=== PATIENT | female | born 1995 | race Caucasian/White ===

== ENCOUNTER 2019-09-12 01:55 | Outpatient (CLI) | payer MEDICAID, SELFPAY ==
--- NOTE | 2019-09-12 | US_ITS ---
WS: [id number] ULTRASOUND OB TWINS HISTORY: MULTIGRAVIDA IN THIRD TRIMESTER COMPARISON: 08/26/2019, 04/19/2019 FETUS A Presentation: Breech Placenta: Posterior, fundal and grade 2 HEART: FHR 145 beats per minute. measurements: BPD = 8.6 cm = 34 weeks 4 days HC = 31.5 cm = 35 weeks 2 days AC = 30.8 cm = 34 weeks 6 days FL = 6.6 cm = 34 weeks 0 day BOBBY: Decreased fluid surrounding baby A. EFW: 2469 g; 66 percentile AGA by ultrasound: 34 weeks 5 days NOLBERTO by ultrasound: 10/19/2019 FETUS B Presentation: Breech. Placenta: Posterior, fundal and grade 2 HEART: FHR 134 beats per minute. measurements: BPD = 8.6 cm = 34 weeks 4 days HC = 31.3 cm = 35 weeks 1 day AC = 31.2 cm = 35 weeks 1 day FL = 6.8 cm = 34 weeks 5 days BOBBY: Increasing fluid surrounding the fetus B. BOBBY calculated at 33 cm. EFW: 2557 g; 71st percentile AGA by ultrasound: 34 weeks 6 days NOLBERTO by ultrasound: 10/18/2019 US/US OB follow up twins [id number] IMPRESSION: 1. Twin gestation A. * Breech. * 34 weeks 5 days with an EDC of the 10/19/2019 * Decreased amniotic fluid around the fetus. * Estimated weight at the 66th percentile. 2. Twin gestation B. * Breech. * 34 weeks 6 days with an EDC of 10/18/2019. * Increased fluid surrounding the fetus. * Estimated weight at the 71st percentile. 3. Appropriate growth since the first trimester ultrasound. No growth asymmetry . There is asymmetry between the amniotic fluid volume surrounding each fetus. More fluid surrounding baby B.
== END 2019-09-12 01:56 | disposition home or self-care (01) ==
LOC: RADOUTREAD 16:11
PROVIDERS: PCP Pediatrics Adolescent Medicine; Visit Provider Family Medicine
DX: O30.003 Twin pregnancy, unspecified number of placenta and unspecified number of amniotic sacs, third trimester (principal); Z3A.34 34 weeks gestation of pregnancy; O32.1XX0 Maternal care for breech presentation, not applicable or unspecified

== ENCOUNTER 2019-09-13 12:25 | Outpatient (CLI) | payer MEDICAID, SELFPAY ==
[2019-09-13 13:25] VITALS: RESP 20; TEMP 37; BMI 45.3
[2019-09-13 14:25] VITALS: BP 156/78; PULSE 114
[2019-09-13 14:35] VITALS: RESP 20; TEMP 36.9
== END 2019-09-13 14:35 | disposition home or self-care (01) ==
PROVIDERS: PCP Pediatrics Adolescent Medicine; Visit Provider Family Medicine
DX: O30.009 Twin pregnancy, unspecified number of placenta and unspecified number of amniotic sacs, unspecified trimester (principal); Z3A.00 Weeks of gestation of pregnancy not specified
CPT/HCPCS: 59025; 99211

== ENCOUNTER 2019-09-20 12:44 | Outpatient (CLI) | payer MEDICAID, SELFPAY ==
[2019-09-20 12:55] VITALS: BMI 44.7
[2019-09-20 13:12] VITALS: BP 126/63; PULSE 107
[2019-09-20 13:13] VITALS: RESP 18; TEMP 37
[2019-09-20 13:14] VITALS: BP 126/63; PULSE 107
[2019-09-20 13:51] VITALS: PULSE 125; O2SAT 99
[2019-09-20 14:00] VITALS: BP 126/63; PULSE 107; RESP 18; TEMP 37
[2019-09-20 21:59] LABS: Basophils % 0.2 %; Eosinophils # 0.2 10^3/uL (0.0-0.8); Eosinophils % 1.2 %; Hematocrit 34.2 % (37.0-47.0); Hemoglobin 10.9 g/dL (11.5-15.3); Lymphocytes # 2.9 10^3/uL (0.8-4.8); Mean Corpuscular HGB Conc 31.9 g/dL (30.0-36.0); Mean Corpuscular Hemoglobin 27.3 pg (28.0-34.0); Mean Corpuscular Volume 85.5 fL (81-99); Mean Platelet Volume 12.8 fL (7.4-10.4); Monocytes # 1.3 10^3/uL (0.2-0.9); Monocytes % 9.4 %; Neutrophils # 9.2 10^3/uL (1.8-7.7); Nucleated Red Blood Cells % 0 %; Platelet Count 150 10^3/cmm (130-400); Red Cell Distribution Width 12.8 % (12.1-15.1); White Blood Count 13.8 10^3/uL (4.0-10.0)
== END 2019-09-20 14:00 | disposition home or self-care (01) ==
LOC: OPOB 12:52
PROVIDERS: PCP Pediatrics Adolescent Medicine; Visit Provider Family Medicine
DX: O30.009 Twin pregnancy, unspecified number of placenta and unspecified number of amniotic sacs, unspecified trimester (principal); Z3A.00 Weeks of gestation of pregnancy not specified
CPT/HCPCS: 59025; 85025; 99211

== ENCOUNTER 2019-09-20 21:37 | Inpatient (IN) | payer MEDICAID, SELFPAY ==
[2019-09-20] VITALS (29 sets, daily range): BP systolic 0–165; BP diastolic 0–91; PULSE 89–126; RESP 16–20; TEMP 36.7–36.8; O2SAT 97–99; BMI 44.6
[2019-09-20] MEDS: lactated ringers 1,000 ML 999 ML IV ×2 (18:30→19:37)
--- NOTE | 2019-09-20 21:24 | PM.OBGYHP ---
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 The patient began care at around 6 weeks gestation and was found to have a twin at that time after an ultrasound was done secondary to spotting of blood. That did resolve. She has had no significant problems through her course. Options were discussed with her regarding possible vaginal delivery versus section. The infant's have grown proportionately and well through the . Her blood type is B+ with antibody screen negative. Hepatitis B, hepatitis C, RPR and HIV were negative. Rubella is immune and group B strep has been negative. Glucose screen was 103. More recently, the patient has been having intermittent contractions which have become uncomfortable. She was seen in the office earlier today as well as at the OB department for nonstress testing which was reactive. She states that sometime after she left the OB department she began having stronger contractions and harder contractions. As they continued she was brought to the obstetrics department at [facility]. She was niharika every 2 to 4 minutes on arrival and was 1-1/2 cm dilated but still pretty thick and high. She was given 2 L of lactated Ringer's intravenously for hydration and she is continued to contract although pretty regularly. heart tones have been difficult to keep on the monitor. 1 of the 's has a pretty flat heart rate with very few D cells or accelerations. The other is very reactive. Her cervix has not changed however indicating she is not in active labor. However, as her contractions continue and her discomfort grows along with 1 of her infant's not being very reactive I have discussed this case with the patient and her spouse and we feel that she probably should proceed with section tonight. I have discussed this case with Dr. Pires who is coming in to help perform that. The infant's are both in breech position at this time. Review of Systems General: Reports: 10 or more systems reviewed and unremarkable except in HPI and below Const: Reports: fatigue; Denies: fever or chills Card: Reports: swelling of feet/ankles (Mild); Denies: chest pain, palpitations, irregular heart rhythm or edema Resp: Denies: shortness of breath, productive cough or chest congestion GI: Reports: abdominal pain (Contractions and overall significant pain.); Denies: difficulty swallowing : Reports: absence of menstruation (35 weeks and 2 days gestation .) and pelvic pain; Denies: flank pain or difficulty urinating Musc: Reports: back pain; Denies: neck pain or extremity pain Neuro: Denies: headache, numbness in extremities, weakness in extremities or frequent falls Psych: Reports: anxiety; Denies: depression or mood swings Medications/Allergies Allergies Allergy/AdvReac Type Severity Reaction Status Date / Time No Known Allergies Allergy Verified 09/20/19 14:51 [facility] COLLAR CUTTER History Other History: 2 para 1. Presently with twins. Vitals/I&O/Wt Last Vital Signs Temp 98.3 F 09/20/19 18:04 Pulse 126 H 09/20/19 21:13 Resp 18 09/20/19 18:09 BP 129/76 09/20/19 21:13 Weight last 48 hrs Weight 117.934 kg Physical Exam Const: COMMON NORMALS: no apparent distress and alert GENERAL APPEARANCE: cooperative; not comfortable (Patient obviously uncomfortable.) NUTRITIONAL APPEARANCE: overweight ORIENTATION/CONSCIOUSNESS: Yes awake, Yes oriented to person, Yes oriented to place and Yes oriented to time HENMT: COMMON NORMALS: head/scalp atraumatic HEAD & SCALP: normal to inspection and atraumatic Neck/C-Spine: COMMON NORMALS: full ROM, supple and no JVD Chest: COMMONS NORMALS: inspection of chest normal CHEST: Yes symmetrical chest wall rise Resp: COMMON NORMALS: normal respiratory effort, no retractions, no use of accessory muscles and clear to auscultation bilaterally AUSCULTATION: clear to auscultation bilaterally Cardio: COMMON NORMALS: no JVD, regular rate, regular rhythm and no murmurs RATE: regular rate RHYTHM: regular rhythm GI: COMMON NORMALS: non-tender; negative for normal to inspection, nondistended, normoactive bowel sounds (Obvious gravid abdomen and firm.) : COMMON NORMALS: Yes no CVA tenderness BLADDER/KIDNEY EXAM: Yes no CVA tenderness MANUAL OB EXAM: dilated 1 cm (1.5 cm), effaced 50% and station high UTERUS PALPATION: No uterus tender AMNIOTIC FLUID: no fluid Back/Pelvis: COMMON NORMALS: no CVA tenderness Extremity: GENERAL: Yes edema (Trace edema) Neuro: SENSORIUM/ORIENTATION: Yes alert, Yes oriented to person, Yes oriented to place and Yes oriented to time Psych: COMMON NORMALS: mental status grossly normal, thought process normal, cooperative, affect normal, speech normal and activity/motor behavior normal SPEECH: Yes normal speech THOUGHT PROCESS: normal thought process A&P Assessment and plan (1) Twin in third trimester: Patient is 35 weeks and 2 days gestation with contractions and nonreassuring heart strip. A decision has been made to proceed with primary section. Dr. Pires has been consulted and anesthesia is coming. Plan spinal anesthesia for delivery of twin . We will adjust orders as necessary. Status: Acute Code(s): O30.003 - Twin , unspecified number of placenta and unspecified number of amniotic sacs, third trimester (2) Breech presentation with problem: Patient requires delivery secondary to breech presentation with twin . Status: Acute Code(s): O32.1XX0 - Maternal care for breech presentation, not applicable or unspecified Attestations Medical Necessity Statement*: This patient is with twin and presently is preparing to undergo section secondary to labor and breech presentation of both twins. She requires inpatient hospitalization I expect this hospital stay to be greater than 2 midnights. Coding Level of Care Code Acute Program Paraprofessional for Chg Fwd Exam Problem Focused Diagnoses Twin in third trimester O30.003 Breech presentation with problem O32.1XX0
--- NOTE | 2019-09-20 21:48 | ANES.PREANES ---
Pre-Anesthetic Assessment Pre-Anesthetic Assessment: Height/Weight: Height 1.63 m Weight 117.934 kg Temp Pulse Resp BP 98.3 F 101 H 18 165/83 09/20/19 18:04 09/20/19 21:42 09/20/19 18:09 09/20/19 21:42 Preop Diagnosis: labor twins Proposed Procedure: c section Last Intake: 15:00 Exam: Pre-Anes Outpt Exam: alert, oriented x 3, clear to auscultation bilaterally and regular rate & rhythm Airway: Submandibular: WNL Cervical ROM: WNL MP: 2 Pulmonary: Pulmonary: None reported CV/HEM: CV/HEM: None reported : : None reported Hepatic: Hepatic: None reported GI: GI: None reported Metabolic: Metabolic: Morbid obesity Musc/skel: Musc/skel: None reported Neuropsych: Neuropsych: None reported Anesthetic Plan: ASA status: II Anesthesia: Anesthesia Evaluation and Eval. for regional block Other: SAB Data Anesthesia Cardiac Studies: No Data to Display
[2019-09-20] MEDS: metoclopramide 5 mg/mL SDV 2 mL 10 MG IVP (22:04)
[2019-09-20] MEDS: famotidine 20 mg/2 mL INJ IVP (22:04)
[2019-09-20] MEDS: citric acid-sodium citrate 30 mL UDC PO (22:04)
[2019-09-21] VITALS (23 sets, daily range): BP systolic 92–141; BP diastolic 60–81; PULSE 76–130; RESP 16–18; TEMP 36.4–37; O2SAT 96–98
--- NOTE | 2019-09-21 00:01 | PM.OP ---
Operative Report Date of procedure: 09/21/19 Pre-op Diagnosis: labor twins Pre-op Diagnosis: 24-year-old female at 35 weeks and 2 days with twin gestation. Consistent contractions with nonreassuring heart tones Breech presentation of both infants Post-op diagnosis: same Procedure Done: Lower transverse section Specimens removed/disposition: 1. Twin A was a female with a weight of 5 pounds 9 ounces and Apgars of 8 and 9 2. Twin B who was actually delivered first with his weight was 5 pounds 1 ounces with Apgars of 3 5 and 7 3. An intact placenta with both umbilical cords demonstrating 3 vessels Pathology: Placenta with both umbilical cords. The male or twin B had curved hemostats placed on his umbilicus and the female or twin A had a straight hemostat placed on her umbilicus Surgeon: Olaf Pires Anesthesia: Other (Spinal) Estimated blood loss (mL): 1,000 Complications: None Condition: stable Disposition: floor (OB) Procedure: The patient was brought back to the operating room where she was prepped and draped in usual sterile fashion. Anesthesia was found to be adequate. Due to the habitus of the patient, I elected to make the incision above the pannus approximately 5 cm below the umbilicus. I made the incision with a #10 blade. I then dissected down to the underlying subcutaneous tissue until arriving at the prerectal fascia. The fascia was then nicked with the scalpel bilaterally. The fascial incisions were then carried laterally with Agudelo scissors. Attention was then turned to the superior aspect of the incision which was grasped with kochers and tented up away from the underlying rectus abdominis muscles., There was almost no rectus abdominis muscle tissue. Regardless the muscles were then dissected away from the fascia manually, Attention was then turned to the inferior aspect of the incision, and the fascia was dissected away from the underlying muscle in similar fashion. The peritoneum was entered manually. Excellent visualization of the uterus was noted. A lower transverse uterine incision was then made with a #10 blade. Upon arriving at the intrauterine cavity, the uterine incision was then extended manually. The membranes to both babies were then ruptured with an Allis. The first baby encountered was baby B who was easily delivered from a beckie breech position. His car was then cut and clamped and he was handed to the waiting nurses and Dr. Segundo. I then attempted to deliver the female from her breech position. Her butt was far locked down into the canal that I elected to deliver her head first after making several attempts to maneuver her body to the uterine incision for a breech delivery. Baby's head was easily delivered. I then completely delivered the baby once again, and clamped and cut her umbilical cord and handed her to Dr. Segundo and his nurses. The uterus was externalized. The intrauterine cavity was cleansed of any remaining debris. The uterine incision was reapproximated in 2 layers. The first layer was performed with 0 Vicryl in a running locked stitch. The second layer was an imbricating stitch also using 0 Vicryl. The uterus was replaced into the abdomen. The peritoneum was then irrigated with warm saline. I reexamined the uterine incision and found it to be hemostatic. The fascia was then reapproximated using 0 Vicryl in running stitch. The subcutaneous tissue was then reapproximated using 0 Vicryl in a running stitch. The skin was then reapproximated using 4-0 Vicryl in a subcuticular running stitch. Steri-Strips were placed. A sterile dressing was placed. All counts were correct x2. Both the mother and baby were in stable condition.
[2019-09-21 07:45] LABS: Hematocrit 33.8 % (37.0-47.0); Hemoglobin 10.8 g/dL (11.5-15.3); Mean Corpuscular Hemoglobin 27.4 pg (28.0-34.0); Mean Corpuscular Volume 85.8 fL (81-99); Mean Platelet Volume 13.9 fL (7.4-10.4); Platelet Count 125 10^3/cmm (130-400); Red Blood Count 3.94 10^6/uL (4.1-5.3); Red Cell Distribution Width 12.8 % (12.1-15.1); White Blood Count 15.6 10^3/uL (4.0-10.0)
--- NOTE | 2019-09-21 09:14 | PM.OBGYPN ---
MOBILE PET GROOMER Subjective Subjective: Interval history: The patient is doing very well. She has no complaints. Her bleeding has been reasonable. She has no pain. Labor: Station: -3 Amniotic Membrane Status: Intact Monitor Mode: External Contraction Pattern: Regular Vitals/I&O/Wt Last Vital Signs Temp 97.5 F L 09/21/19 06:26 Pulse 87 09/21/19 06:26 Resp 16 09/21/19 06:26 BP 106/64 09/21/19 06:26 Pulse Ox 97 09/21/19 01:42 09/20/19 09/21/19 09/21/19 22:59 06:59 14:59 Output Total 920 / 920 Balance -920 / -920 Weight last 48 hrs Weight 260 lb Physical Exam Narrative: EXAM NARRATIVE: She is in no acute distress Lungs are clear auscultation bilaterally Her heart has a regular rate and rhythm Her fundus is below the umbilicus and firm Her dressing is clean, dry and intact Her extremities have trace edema Data : 09/21/19 06:50 A&P Assessment and plan (1) Status post : The patient appears to be recovering appropriately. I anticipate she will have a routine post hospital course. Status: Acute Code(s): Z98.891 - History of uterine scar from previous surgery Attestations Medical Necessity Statement*: Routine post care Coding Level of Care Code Acute Engineering Technician for Chg Fwd Diagnoses Status post Z98.891
[2019-09-21] MEDS: prenatal vitamin Capsule 1 CAP PO (10:08)
[2019-09-21] MEDS: docusate sodium 100 mg Capsule PO ×2 (10:09→20:30)
[2019-09-21] MEDS: HYDROcodone-acetaminophen 5-325 mg Tablet PO ×2 (17:01→20:30)
[2019-09-22 04:00] VITALS: BP 109/69; PULSE 86; RESP 18; TEMP 36.5; O2SAT 97
[2019-09-22] MEDS: HYDROcodone-acetaminophen 5-325 mg Tablet PO ×2 (04:27→08:33)
[2019-09-22] MEDS: acetaminophen 325 mg Tablet 650 MG PO (06:05)
[2019-09-22] MEDS: prenatal vitamin Capsule 1 CAP PO (08:32)
[2019-09-22] MEDS: ferrous sulfate EC 325 mg Tablet PO (08:33)
[2019-09-22] MEDS: docusate sodium 100 mg Capsule PO (08:33)
[2019-09-22 08:40] VITALS: BP 123/75; PULSE 92; RESP 16; TEMP 36.6
[2019-09-22 10:55] VITALS: BP 113/75; PULSE 86; RESP 16; TEMP 36.6
--- NOTE | 2019-11-12 07:04 | PM.OBGYDC ---
Discharge Providers PERSONAL CARE SERVICE PROVIDER Date of Admission: 09/20/19 21:37 Date of Discharge: 11/12/19 Attending Provider at Admission: Yuri Segundo MD Attending Provider at Discharge: Olaf Pires Primary Care Provider: Yuri Segundo MD Diagnoses at Discharge Discharge Diagnosis (1) Status post : Status: Resolved Reason for Visit Reason for Visit: Reason For Visit: Contractions Hospital Course Hospital Course: The patient is a 35-week gestational age female with twin who presented to the hospital in active labor. The infants were both in breech position. 1 of the 's had a nonreassuring heart tone. Dr. Segundo assessed the situation and determined that the benefits of proceeding with a outweigh the risks of trying conservative care. I was contacted and we proceeded to a . The was unremarkable. The patient's post operative course was also unremarkable. Her bleeding was well controlled. Her pain was adequately controlled. She passed gas. Her diet was advanced and tolerated well. She was able to ambulate without difficulty. Physical Exam Narrative: EXAM NARRATIVE: She is in no acute distress Lungs are clear auscultation bilaterally Her heart has a regular rate and rhythm Her fundus is below the umbilicus and firm Her incision is clean, dry and intact Her extremities have trace edema Discharge Data Data Completed and Pending: Completed Studies During Hospitalization Category Date Time Status Pathology: Surgic al [PTH] Routine Pth 09/23/19 09:36 Completed Vitals: Last Vital Signs Temp 97.8 F 09/22/19 10:55 Pulse 86 09/22/19 10:55 Resp 16 09/22/19 10:55 BP 113/75 09/22/19 10:55 Pulse Ox 97 09/22/19 04:00 Discharge Plan Discharge Patient Disposition: Home, Self-Care Condition: Stable Prescriptions: New hydrocodone-acetaminophen 5-325 mg Tablet 1 - 2 tab PO Q4H PRN (Reason: Moderate To Severe Pain) Qty: 30 RF: 0 ibuprofen 800 mg Tablet 800 mg PO TID Qty: 45 RF: 0 Continued Vitamin 27 mg iron- 0.8 mg Tablet 1 tab PO DAILY RF: 0 Discharge Orders: Discharge Order (Routine); Ordered 09/22/19 Ordered By: Olaf Pires Referrals: Yuri Segundo MD [Physician] - 6 Weeks (Call Dr. Segundo's office Monday to make a 6 week follow up appointment. ) Olaf Pires MD [Physician] - 4-7 days (Call [facility] and make an appointment for or Monday for an incision check with Dr. Pires.) Discharge Diet: Regular Discharge Activity: Limit activity as instructed Patient Instructions: OB - Lexis/Henok, OB Discharge Report, OB Food/Drug Interaction Guide, OB Home Care, OB Proud Parent Packet Discharge Date/Time: 09/22/19 12:10 Discharge Attestations PERSONAL CARE SERVICE PROVIDER Time Spent in Discharge Care*: less than 30 min Coding Level of Care Code Acute Fruit Coordinator for Chg Fwd Diagnoses Status post Z98.891
== END 2019-09-22 12:10 | disposition home or self-care (01) | DRG 788 ==
LOC: OBGYN 21:46 → OPOB 21:46
PROVIDERS: Family Medicine; Admitting Provider Family Medicine; PCP Pediatrics Adolescent Medicine; Visit Provider Family Medicine
PROC: (CPT 59514; principal; 2019-09-20 22:00)
DX: O32.1XX0 Maternal care for breech presentation, not applicable or unspecified (principal); O30.003 Twin pregnancy, unspecified number of placenta and unspecified number of amniotic sacs, third trimester; Z3A.35 35 weeks gestation of pregnancy; Z37.2 Twins, both liveborn; O34.211 Maternal care for low transverse scar from previous cesarean delivery; O99.214 Obesity complicating childbirth; E66.01 Morbid (severe) obesity due to excess calories
CPT/HCPCS: 12345; 36415; 59409; 85027; 88307; 96375; 99211; J0690; J2274; J2405; J2590; J2765; J3490

== ENCOUNTER → 2020-04-22 11:40 | Outpatient (BNVA) | payer MEDICAID, SELFPAY | PROVIDERS: PCP Pediatrics Adolescent Medicine; Referring Provider Nurse Practitioner Family; Visit Provider Specialist | DX: R20.0 Anesthesia of skin (principal); R20.2 Paresthesia of skin; M79.641 Pain in right hand; M79.642 Pain in left hand | CPT/HCPCS: 95910 ==

== ENCOUNTER → 2020-07-22 14:11 | Outpatient (BNVA) | payer MEDICAID, SELFPAY | PROVIDERS: PCP Nurse Practitioner Family; Visit Provider Internal Medicine | DX: R76.8 Other specified abnormal immunological findings in serum (principal); R20.0 Anesthesia of skin; R20.2 Paresthesia of skin; Z11.59 Encounter for screening for other viral diseases; Z79.899 Other long term (current) drug therapy | CPT/HCPCS: 36415; 99204 ==

== ENCOUNTER 2020-07-22 15:43 | Outpatient (CLI) | payer MEDICAID, SELFPAY ==
--- NOTE | 2020-07-22 15:50 | XR_ITS ---
WS: [id number] TECHNIQUE: 2 views of the right hand CLINICAL INFORMATION: R76.8 - Other specified abnormal immunological findings in serum COMPARISON: None. FINDINGS: Normal metacarpals. Normal MCP joint. Metacarpal heads are normal in appearance. Normal PIP and DIP j oints. No evidence of acute fracture or dislocation. Radiocarpal joint: Mild narrowing Carpal bones: Normal. XR/XR hand RT 2V [id number] IMPRESSION: No significant erosive changes.
--- NOTE | 2020-07-22 15:50 | XR_ITS ---
WS: [id number] TECHNIQUE: 2 views of the left hand CLINICAL INFORMATION: R76.8 - Other specified abnormal immunological findings in serum COMPARISON: None. FINDINGS: Normal metacarpals. Normal MCP joint. Metacarpal heads are normal in appearance. Normal PIP and DIP j oints. No evidence of acute fracture or dislocation. Radiocarpal joint: Mild degenerative narrowing. Carpal bones: Normal. XR/XR hand LT 2V [id number] IMPRESSION: No significant erosive changes.
== END 2020-07-22 15:44 | disposition home or self-care (01) ==
LOC: RADWPI 15:49
PROVIDERS: PCP Nurse Practitioner Family; Visit Provider Internal Medicine
DX: R76.8 Other specified abnormal immunological findings in serum (principal)
CPT/HCPCS: 73120; 80053; 81003; 82607; 82728; 83540; 85025; 85651; 86140; 86431; 86704; 86803; 87340

== ENCOUNTER → 2020-10-27 13:42 | Outpatient (BNVA) | payer BC, SELFPAY | PROVIDERS: PCP Nurse Practitioner Family; Visit Provider Internal Medicine | DX: R76.8 Other specified abnormal immunological findings in serum (principal); R79.82 Elevated C-reactive protein (CRP); Z79.899 Other long term (current) drug therapy; M79.643 Pain in unspecified hand | CPT/HCPCS: 86160; 99214 ==

== ENCOUNTER → 2021-01-21 11:32 | Outpatient (BNVA) | payer BC, SELFPAY | PROVIDERS: PCP Nurse Practitioner Family; Visit Provider Internal Medicine | DX: R76.8 Other specified abnormal immunological findings in serum (principal); R79.82 Elevated C-reactive protein (CRP); M79.643 Pain in unspecified hand | CPT/HCPCS: 99213 ==

== ENCOUNTER 2021-02-09 10:17 | Outpatient (CLI) | payer BC, SELFPAY | END 2021-02-09 10:18 | disposition home or self-care (01) | PROVIDERS: PCP Nurse Practitioner Family; Visit Provider Internal Medicine | DX: R76.8 Other specified abnormal immunological findings in serum (principal) | CPT/HCPCS: 36415; 80053; 85025; 85651; 86140 ==

== ENCOUNTER → 2021-02-23 10:04 | Outpatient (BNVA) | payer BC, SELFPAY | PROVIDERS: PCP Nurse Practitioner Family; Visit Provider Internal Medicine | DX: R76.8 Other specified abnormal immunological findings in serum (principal); R79.82 Elevated C-reactive protein (CRP); M79.643 Pain in unspecified hand; R53.83 Other fatigue | CPT/HCPCS: 99213 ==

== ENCOUNTER → 2021-07-27 13:17 | Outpatient (BNVA) | payer BC, SELFPAY | PROVIDERS: PCP Nurse Practitioner Family; Visit Provider Internal Medicine Rheumatology | DX: R76.8 Other specified abnormal immunological findings in serum (principal); Z79.899 Other long term (current) drug therapy | CPT/HCPCS: 36415 ==

== ENCOUNTER 2021-07-27 14:30 | Outpatient (CLI) | payer MEDICAID, SELFPAY ==
[2021-07-27 15:05] LABS: Basophils # 0.1 10^3/uL (0.0-0.1); Basophils % 0.6 %; Eosinophils # 0.3 10^3/uL (0.0-0.8); Hematocrit 41.5 % (37.0-47.0); Hemoglobin 14.1 g/dL (11.5-15.3); Lymphocytes # 3.3 10^3/uL (0.8-4.8); Lymphocytes % 34.3 %; Mean Corpuscular Hemoglobin 29.4 pg (28.0-34.0); Mean Corpuscular Volume 86.6 fl (81-99); Mean Platelet Volume 12.1 fL (7.4-10.4); Monocytes # 0.8 10^3/uL (0.2-0.9); Monocytes % 8.7 %; Neutrophils # 5.03 10^3/uL (1.8-7.7); Neutrophils % 53.1 %; Nucleated Red Blood Cells % 0 %; Platelet Count 229 10^3/cmm (130-400); Red Blood Count 4.79 10^6/uL (4.1-5.3); Red Cell Distribution Width 12.1 % (12.1-15.1); White Blood Count 9.5 10^3/uL (4.0-10.0)
[2021-07-27 15:14] LABS: Add Urine Microscopic? NO; Charge for UA Resulting for Rev
[2021-07-27 15:20] LABS: Bilirubin Urine Neg (Negative); Blood Urine Neg (Negative); Glucose Urine UA Norm (Normal); Ketones Urine Negative (Negative); Leukocyte Esterase Urine Negative (Negative); Nitrate Urine Negative (Negative); Protein Urine Neg (Negative); Urine Appearance Clear (CLEAR); Urine Color Yellow (Yellow); Urobilinogen Urine Norm (Negative); pH Urine 5 (5-7)
[2021-07-27 15:28] LABS: Alanine Aminotransferase 19 U/L (0-33); Albumin Level 4.2 g/dL (3.5-5.2); Alkaline Phosphatase 93 IU/L (35-105); Anion Gap 16.6 (5-19); Aspartate Amino Transferase 18 U/L (0-32); Blood Urea Nitrogen 8 mg/dL (6-20); C Reactive Protein 2.8 mg/L (0.0-4.9); Calcium 8.7 mg/dL (8.5-10.5); Carbon Dioxide 21 mmol/L (22-29); Chloride 101 mmol/L (98-107); Globulin 3.1 g/dL (1.3-4.6); Glomerular Filtration Rate 100.4 mL/min (90-130); Glucose 78 mg/dL (65-115); Osmolality Calculated 277 mOsm/kg (285-295); Potassium 3.6 mmol/L (3.5-5.1); Sodium 135 mmol/L (136-145); Total Bilirubin 0.2 mg/dL (0.15-1.2); Total Protein 7.3 g/dL (6.6-8.7)
[2021-08-02 12:17] LABS: Erythrocyte Sedimentation Rate 6 mm/hr (0-15)
== END 2021-07-27 14:31 | disposition home or self-care (01) ==
PROVIDERS: PCP Nurse Practitioner Family; Visit Provider Internal Medicine
DX: R76.8 Other specified abnormal immunological findings in serum (principal); Z79.899 Other long term (current) drug therapy
CPT/HCPCS: 80053; 81003; 85025; 85651; 86140

== ENCOUNTER → 2021-08-10 13:23 | Outpatient (BNVA) | payer MEDICAID, SELFPAY | PROVIDERS: PCP Nurse Practitioner Family; Visit Provider Internal Medicine | DX: R76.8 Other specified abnormal immunological findings in serum (principal); R20.0 Anesthesia of skin; R20.2 Paresthesia of skin | CPT/HCPCS: 99213; 99214 ==

== ENCOUNTER → 2021-09-21 12:28 | Outpatient (BNVA) | payer MEDICAID, SELFPAY | PROVIDERS: PCP Nurse Practitioner Family; Visit Provider Nurse Practitioner Family | DX: Z20.822 Contact with and (suspected) exposure to COVID-19 (principal) | CPT/HCPCS: 87635 ==

== ENCOUNTER → 2022-01-04 14:37 | Outpatient (BNVA) | payer MEDICAID, SELFPAY | PROVIDERS: PCP Nurse Practitioner Family; Visit Provider Internal Medicine | DX: R76.8 Other specified abnormal immunological findings in serum (principal); R20.0 Anesthesia of skin; R20.2 Paresthesia of skin | CPT/HCPCS: 80053; 81001; 85025; 85651; 99213; 99214 ==

== ENCOUNTER → 2022-10-11 14:35 | Outpatient (BNVA) | payer MEDICAID, SELFPAY | PROVIDERS: PCP Nurse Practitioner Family; Visit Provider Internal Medicine | DX: R76.8 Other specified abnormal immunological findings in serum (principal); R20.0 Anesthesia of skin; R20.2 Paresthesia of skin; R21 Rash and other nonspecific skin eruption | CPT/HCPCS: 36415; 80053; 81001; 85025; 85651; 86036; 86140 ==

== ENCOUNTER → 2022-10-24 12:15 | Outpatient (BNVA) | payer MEDICAID, SELFPAY | PROVIDERS: PCP Nurse Practitioner Family; Visit Provider Dermatology | DX: I77.6 Arteritis, unspecified (principal); R76.8 Other specified abnormal immunological findings in serum; R21 Rash and other nonspecific skin eruption; R20.0 Anesthesia of skin; R20.2 Paresthesia of skin | CPT/HCPCS: 36415; 82595; 86160; 86162; 86235; 86255; 86376; 86705; 86706; 86709; 86803; 87340; 87806 ==

== ENCOUNTER → 2022-11-17 09:32 | Outpatient (BNVA) | payer MEDICAID, SELFPAY | PROVIDERS: PCP Nurse Practitioner Family; Visit Provider Dermatology | DX: I77.6 Arteritis, unspecified (principal); Z79.899 Other long term (current) drug therapy | CPT/HCPCS: 81001 ==

== ENCOUNTER 2022-12-13 08:24 | Outpatient (CLI) | payer MEDICAID, SELFPAY ==
[2022-12-13 09:19] LABS: Basophils % 0.4 %; Eosinophils # 0.2 10^3/uL (0.0-0.8); Eosinophils % 2.1 %; Hematocrit 40.9 % (37.0-47.0); Hemoglobin 13.2 g/dL (11.5-15.3); Lymphocytes % 18.7 %; Mean Corpuscular HGB Conc 32.3 g/dL (30.0-36.0); Mean Corpuscular Hemoglobin 29.1 pg (28.0-34.0); Mean Corpuscular Volume 90.1 fl (81-99); Mean Platelet Volume 11.7 fL (7.4-10.4); Monocytes # 0.9 10^3/uL (0.2-0.9); Monocytes % 8.2 %; Neutrophils # 7.68 10^3/uL (1.8-7.7); Neutrophils % 70.2 %; Nucleated Red Blood Cells % 0 %; Platelet Count 229 10^3/cmm (130-400); Red Blood Count 4.54 10^6/uL (4.1-5.3); Red Cell Distribution Width 12.4 % (12.1-15.1); White Blood Count 10.9 10^3/uL (4.0-10.0)
[2022-12-13 09:42] LABS: Add Urine Microscopic? YES; Bilirubin Urine Neg (Negative); Blood Urine Neg (Negative); Glucose Urine UA Norm (Normal); Ketones Urine Negative (Negative); Leukocyte Esterase Urine Negative (Negative); Nitrate Urine Negative (Negative); Protein Urine Neg (Negative); Specific Gravity, Urine 1.005 (1.005-1.030); Sulfosalicylic Acid Urine Negative (Negative); Urine Appearance Cloudy (CLEAR); Urine Color Yellow (Yellow); Urobilinogen Urine Norm (Negative); pH Urine 8 (5-7)
[2022-12-13 09:44] LABS: Amorphous Sediment Urine 2+ /hpf; Bacteria Urine 1+ /hpf; RBC Urine 0-4 /hpf (0-2); WBC Urine 0-4 /hpf (0-5)
[2022-12-13 09:52] LABS: Alanine Aminotransferase 33 U/L (0-33); Albumin Level 4.4 g/dL (3.5-5.2); Alkaline Phosphatase 85 U/L (35-105); Anion Gap 13.8 (5-19); Aspartate Amino Transferase 24 U/L (0-32); Blood Urea Nitrogen 7 mg/dL (6-20); C Reactive Protein 14.8 mg/L (0.0-4.9); Calcium 9.1 mg/dL (8.5-10.5); Carbon Dioxide 24 mmol/L (22-29); Chloride 108 mmol/L (98-107); Globulin 2.9 g/dL (1.3-4.6); Glucose 92 mg/dL (65-115); Osmolality Calculated 292 mOsm/kg (285-295); Potassium 3.8 mmol/L (3.5-5.1); Sodium 142 mmol/L (136-145); Total Bilirubin 0.3 mg/dL (0.15-1.2); Total Protein 7.3 g/dL (6.6-8.7)
[2022-12-13 14:23] LABS: Erythrocyte Sedimentation Rate 15 mm/hr (0-15)
[2022-12-15 13:24] LABS: Quantiferon Mitogen >10.00 IU/mL; Quantiferon Nil 0.03 IU/mL; Quantiferon TB Gold NEGATIVE (NEGATIVE)
[2022-12-16 00:59] LABS: Glucose-6-Phosphate Dehydrogen 16.3 U/g Hgb (7.0-20.5)
[2022-12-16 03:25] LABS: ANCA Screen NEGATIVE (NEGATIVE)
== END 2022-12-13 08:25 | disposition home or self-care (01) ==
LOC: LAB 08:28
PROVIDERS: PCP Nurse Practitioner Family; Visit Provider Internal Medicine
DX: R76.8 Other specified abnormal immunological findings in serum (principal)
CPT/HCPCS: 36415; 80053; 81001; 82955; 85025; 85651; 86036; 86140; 86480

== ENCOUNTER 2023-05-03 13:39 | Emergency (ER) | payer MEDICAID, SELFPAY ==
[2023-05-03 13:59] VITALS: BP 124/77; PULSE 99; RESP 18; TEMP 36.7; O2SAT 94; BMI 39.9
--- NOTE | 2023-05-03 16:12 | W.ED.WOUNDLC ---
HPI - Wound/Laceration General: Chief Complaint: Wound/Laceration Stated Complaint: right hand lack Time Seen by Provider: 05/03/23 16:11 Source: patient Mode of arrival: ambulatory Limitations: no limitations History of Present Illness: Patient is a 28-year-old female who presents to ED today for evaluation and treatment of a laceration to her right hand that she sustained just prior to arrival after cutting it on the lid of a green myers can. Last tetanus is unknown. Onset (ago): hour(s) Extremity Location: Right: hand Place: home Patient tetanus UTD: No Context: accidental Associated symptoms: Reports no associated symptoms Review of Systems Musc: Reports: extremity pain; Denies: extremity swelling, joint pain or joint swelling Skin/Breast: Reports: other (laceration right hand) Neuro: Denies: numbness in extremities, weakness in extremities or sensory changes PFSH ED PFSH: Surgical History Hx of appendectomy Hx of section Family History Mother No problems noted. Family/Other Cancer Grandmother Cancer Grandfather Heart attack Denies family history of Rheumatoid arthritis Diabetes Lupus Hyperlipidemia Hypertension Stroke Social History Smoking and tobacco status: never smoked Alcohol intake: former Substance/Drug Use: never Physical Exam Const: COMMON NORMALS: no acute distress, no limitations and alert Extremity: COMMON NORMALS: full ROM, capillary refill normal, no joint enlargement, no clubbing, cyanosis or edema, no calf tenderness and no pedal edema GENERAL: Yes normal exam except as noted RIGHT UPPER EXTREMITY: Yes hand & digits OTHER: Patient has approximately 2.5 cm laceration to the ulnar aspect of the right hand; no bleeding; full range of motion of digits in all planes against resistance Neuro: COMMON NORMALS: moves all extremities, no focal motor deficits and no sensory deficits noted SENSORIUM/ORIENTATION: Yes alert Procedures Laceration Laceration 1: Site: hand Side (If applicable): right Size (cm): 2.5 Description: linear Depth: simple, single layer Local Anesthetic: lidocaine 1% Amount of anesthesia used (mL): 2.5 Pre-repair: wound explored and irrigated extensively Skin layer closed with: nylon Size (cm): 4-0 Number of sutures: 5 Technique: simple, interrupted Course Vital Signs: Vital signs: Vital Signs Temperature 98.1 F 05/03/23 13:59 Pulse Rate 99 05/03/23 13:59 Respiratory Rate 18 05/03/23 13:59 Blood Pressure 124/77 05/03/23 13:59 Pulse Oximetry 94 05/03/23 13:59 Oxygen Delivery Me thod Room Air 05/03/23 13:59 MDM - Wound/Laceration Medical Decision Making Wound was copiously irrigated and repaired as documented. No tendon involvement. Wound care/infection precautions discussed. Return to ED precautions given. Tetanus updated. Discharge Plan Discharge Patient Disposition: Home Clinical Impression: Laceration of hand, right Qualifiers: Encounter type: initial encounter Foreign body presence: without foreign body Qualified Code(s): S61.411A - Laceration without foreign body of right hand, initial encounter Condition: Stable Prescriptions: No Action loratadine [Claritin] 10 mg tablet 10 mg PO DAILY venlafaxine 25 mg tablet 25 mg PO DAILY fluticasone propionate [Flonase Allergy Relief] 50 mcg/actuation spray,suspension 2 spray intranasal DAILY Qty: 16 0RF Rx Instructions: administer into each nostril colchicine 0.6 mg tablet 0.6 mg PO BID Qty: 60 3RF cephalexin 500 mg tablet 500 mg PO QID 7 Days Qty: 28 0RF Discharge Orders: Discharge ED (Routine); Ordered 05/03/23 Ordered By: Kelsey Giles Referrals: Yuri Hilliard MD [Primary Care Provider] - Patient Instructions: Care For Your Stitches (DC), Laceration (DC) Activity Restrictions/Additional Instructions: Keep wound/laceration clean with warm soap and water twice daily. Monitor for signs of infection such as redness, swelling, increased pain, or drainage. Please seek medical re-evaluation if these occur. If you received sutures today these will need to be removed (unless you were told by the provider that they are absorbable). The provider should have discussed with you the length of time until removal-7 DAYS. You may return to the emergency department for this service. Coding Level of Care Code ED Water Well Driller for Thania Martinez
[2023-05-03] MEDS: tetanus-dipt-pertussis 0.5 mL SDV IM (16:38)
== END 2023-05-03 16:44 | disposition home or self-care (01) ==
PROVIDERS: Emergency Provider Physician Assistant; PCP Family Medicine
DX: S61.411A Laceration without foreign body of right hand, initial encounter (principal); W26.8XXA Contact with other sharp object(s), not elsewhere classified, initial encounter; Z23 Encounter for immunization
CPT/HCPCS: 12001; 90471; 90715; 99283

== ENCOUNTER 2023-05-17 08:25 | Outpatient (CLI) | payer MEDICAID, SELFPAY ==
[2023-05-17 08:46] LABS: Add Urine Microscopic? NO; Charge for UA Resulting for Rev
[2023-05-17 08:47] LABS: Basophils # 0.1 10^3/uL (0.0-0.1); Basophils % 0.6 %; Eosinophils # 0.3 10^3/uL (0.0-0.8); Eosinophils % 2.9 %; Hematocrit 41.9 % (36-47); Lymphocytes # 2.7 10^3/uL (0.8-4.8); Lymphocytes % 31.4 %; Mean Corpuscular HGB Conc 33.2 g/dL (30-55); Mean Corpuscular Hemoglobin 28.5 pg (27-33); Mean Corpuscular Volume 85.9 fl (85-98); Mean Platelet Volume 11.1 fL (7.4-10.4); Monocytes # 0.7 10^3/uL (0.2-0.9); Monocytes % 7.9 %; Neutrophils # 4.98 10^3/uL (1.8-7.7); Nucleated Red Blood Cells % 0 %; Platelet Count 252 10^3/cmm (157-399); Red Blood Count 4.88 10^6/uL (3.85-5.65); Red Cell Distribution Width 12.5 % (12.1-15.1); White Blood Count 8.73 10^3/uL (3.29-11.43)
[2023-05-17 09:03] LABS: Erythrocyte Sedimentation Rate 10 mm/hr (0-15)
[2023-05-17 09:13] LABS: Bilirubin Urine Neg (Negative); Blood Urine Neg (Negative); Glucose Urine UA Norm (Normal); Ketones Urine Negative (Negative); Leukocyte Esterase Urine Negative (Negative); Nitrate Urine Negative (Negative); Protein Urine Neg (Negative); Specific Gravity, Urine 1.005 (1.005-1.030); Urine Appearance Clear (CLEAR); Urine Color Yellow (Yellow); Urobilinogen Urine Norm (Negative); pH Urine 7 (5-7)
[2023-05-17 09:15] LABS: Alanine Aminotransferase 25 U/L (0-33); Albumin Level 4.6 g/dL (3.5-5.2); Alkaline Phosphatase 103 U/L (35-105); Aspartate Amino Transferase 23 U/L (0-32); Blood Urea Nitrogen 6 mg/dL (6-20); C Reactive Protein 6.5 mg/L (0.0-4.9); Calcium 9.2 mg/dL (8.5-10.5); Carbon Dioxide 26 mmol/L (22-29); Chloride 104 mmol/L (98-107); Globulin 2.7 g/dL (1.3-4.6); Glomerular Filtration Rate 98.9 mL/min (90-130); Glucose 91 mg/dL (65-115); Osmolality Calculated 285 mOsm/kg (285-295); Sodium 139 mmol/L (136-145); Total Bilirubin 0.2 mg/dL (0.15-1.2); Total Protein 7.3 g/dL (6.6-8.7)
[2023-05-17 09:16] LABS: Anion Gap 13.3 (5-19); Potassium 4.3 mmol/L (3.5-5.1)
[2023-05-20 05:30] LABS: ANCA Screen NEGATIVE (NEGATIVE)
== END 2023-05-17 08:26 | disposition home or self-care (01) ==
LOC: LAB 08:29
PROVIDERS: PCP Family Medicine; Visit Provider Internal Medicine
DX: R76.8 Other specified abnormal immunological findings in serum (principal)
CPT/HCPCS: 36415; 80053; 81003; 85025; 85651; 86036; 86140

== ENCOUNTER → 2023-08-17 08:48 | Outpatient (BNVA) | payer MEDICAID, SELFPAY | PROVIDERS: PCP Family Medicine; Visit Provider Internal Medicine | DX: R76.8 Other specified abnormal immunological findings in serum (principal); R20.0 Anesthesia of skin; R20.2 Paresthesia of skin; R21 Rash and other nonspecific skin eruption; G58.9 Mononeuropathy, unspecified; R74.01 Elevation of levels of liver transaminase levels | CPT/HCPCS: 36415; 80053; 81001; 85025; 86036 ==

== ENCOUNTER 2023-09-11 08:07 | Outpatient (CLI) | payer MEDICAID, SELFPAY ==
[2023-09-11 08:54] LABS: Albumin Level 4.3 g/dL (3.5-5.2); Alkaline Phosphatase 99 U/L (35-105); Aspartate Amino Transferase 30 U/L (0-32); Creatine Phosphokinase 113 U/L (26-192); Globulin 3.1 g/dL (1.3-4.6); Total Bilirubin 0.3 mg/dL (0.15-1.2); Total Protein 7.4 g/dL (6.6-8.7)
[2023-09-11 09:05] LABS: Alanine Aminotransferase 69 U/L (0-33)
== END 2023-09-11 08:08 | disposition home or self-care (01) ==
PROVIDERS: PCP Family Medicine; Visit Provider Internal Medicine
DX: R76.8 Other specified abnormal immunological findings in serum (principal); R20.0 Anesthesia of skin; R20.2 Paresthesia of skin
CPT/HCPCS: 36415; 80076; 82550

== ENCOUNTER → 2024-02-27 10:15 | Outpatient (BNVA) | payer MEDICAID, SELFPAY | PROVIDERS: PCP Family Medicine; Visit Provider Internal Medicine Rheumatology | DX: Z79.899 Other long term (current) drug therapy (principal); Z11.59 Encounter for screening for other viral diseases; Z11.1 Encounter for screening for respiratory tuberculosis; R76.8 Other specified abnormal immunological findings in serum; M19.90 Unspecified osteoarthritis, unspecified site; Z71.85 Encounter for immunization safety counseling | CPT/HCPCS: 36415; 80076; 82565; 85025; 85651; 86140; 86480; 86704; 86803; 87340 ==

== ENCOUNTER 2024-04-02 10:11 | Outpatient (CLI) | payer MEDICAID, SELFPAY ==
[2024-04-02 10:54] LABS: Basophils # 0.1 10^3/uL (0.0-0.1); Basophils % 0.5 %; Eosinophils # 0.2 10^3/uL (0.0-0.8); Eosinophils % 1.9 %; Hematocrit 43.6 % (36-47); Lymphocytes % 22.4 %; Mean Corpuscular HGB Conc 32.3 g/dL (30-55); Mean Corpuscular Hemoglobin 29.3 pg (27-33); Mean Corpuscular Volume 90.6 fl (85-98); Mean Platelet Volume 12.2 fL (7.4-10.4); Monocytes # 0.9 10^3/uL (0.2-0.9); Monocytes % 9.9 %; Neutrophils # 5.93 10^3/uL (1.8-7.7); Nucleated Red Blood Cells % 0 %; Platelet Count 246 10^3/cmm (157-399); Red Blood Count 4.81 10^6/uL (3.85-5.65); Red Cell Distribution Width 12.2 % (12.1-15.1); White Blood Count 9.12 10^3/uL (3.29-11.43)
[2024-04-02 11:15] LABS: Alanine Aminotransferase 25 U/L (0-33); Albumin Level 4.3 g/dL (3.5-5.2); Alkaline Phosphatase 97 U/L (35-105); Aspartate Amino Transferase 18 U/L (0-32); C Reactive Protein 3.9 mg/L (0.0-4.9); Globulin 3.4 g/dL (1.3-4.6); Glomerular Filtration Rate 118.2 mL/min (90-130); Total Bilirubin 0.2 mg/dL (0.15-1.2); Total Protein 7.7 g/dL (6.6-8.7)
[2024-04-02 11:18] LABS: Erythrocyte Sedimentation Rate 12 mm/hr (0-15)
== END 2024-04-02 10:12 | disposition home or self-care (01) ==
LOC: LAB 10:12
PROVIDERS: PCP Family Medicine; Visit Provider Internal Medicine Rheumatology
DX: Z79.899 Other long term (current) drug therapy (principal)
CPT/HCPCS: 36415; 80076; 82565; 85025; 85651; 86140

== ENCOUNTER → 2024-10-03 08:23 | Outpatient (BNVA) | payer MEDICAID, SELFPAY | PROVIDERS: PCP Family Medicine; Visit Provider Emergency Medicine | DX: B34.9 Viral infection, unspecified (principal); R51.9 Headache, unspecified | CPT/HCPCS: 87400; 87426 ==

== ENCOUNTER 2024-12-22 17:08 | Emergency (ER) | payer MEDICAID, SELFPAY ==
[2024-12-22 17:13] VITALS: BP 134/91; PULSE 142; TEMP 36.8; O2SAT 98; BMI 42.3
--- NOTE | 2024-12-22 17:20 | ECG_ITS ---
[facility] Test Date: 2024-12-22 Pat Name: Paulina Graham Department: Room: Gender: Female International Tax Manager: : 1995 Requested By: Lico Conner Order Number: [id number] Percy MD: Yohan Brush M.D. Measurements Intervals [place] Rate: 146 P: 55 NC: 120 QRS: 77 QRSD: 79 T: -13 QT: 259 QTc: 404 Interpretive Statements SINUS TACHYCARDIA WITH FREQUENT ECTOPIC PREMATURE COMPLEXES, POSSIBLE ATRIAL FLUTTER POSSIBLE RIGHT VENTRICULAR CONDUCTION DELAY [RSR (QR) IN V1/V2] NONSPECIFIC ST & T-WAVE ABNORMALITY INTERPRETATION BASED ON A DEFAULT AGE OF 40 YEARS No previous ECG available for comparison Electronically Signed On 12-23-2024 16:47:58 CDT by Yohan Brush M.D. [email or web address]
--- NOTE | 2024-12-22 17:20 | ECG_ITS ---
[facility] Test Date: 2024-12-22 Pat Name: Paulina Graham Department: Room: Gender: Female Predictive Maintenance Technician: : 1995 Requested By: Lico Conner Order Number: [id number] Greer MD: Yohan Brush M.D. Measurements Intervals [place] Rate: 146 P: 55 HI: 120 QRS: 77 QRSD: 79 T: -13 QT: 259 QTc: 404 Interpretive Statements SINUS TACHYCARDIA WITH FREQUENT ECTOPIC PREMATURE COMPLEXES, POSSIBLE ATRIAL FLUTTER POSSIBLE RIGHT VENTRICULAR CONDUCTION DELAY [RSR (QR) IN V1/V2] NONSPECIFIC ST & T-WAVE ABNORMALITY INTERPRETATION BASED ON A DEFAULT AGE OF 40 YEARS No previous ECG available for comparison Electronically Signed On 12-25-2024 20:03:09 CDT by Yohan Brush M.D. [email or web address]
--- NOTE | 2024-12-22 17:34 | XRR_ITS ---
PROCEDURE INFORMATION: Exam: XR Chest Exam date and time: 12/22/2024 5:50 PM Age: 29 years old Clinical indication: Chest pressure; Chest pain; Palpitations TECHNIQUE: Imaging protocol: Radiologic exam of the chest. Views: 1 view. COMPARISON: No relevant prior studies available. FINDINGS: Lungs: No focal consolidation. Pleural spaces: No evidence of pneumothorax. No evidence of pleural effusion. Heart/Mediastinum: Cardiomediastinal silhouette is within normal limits. Bones/joints: No evidence of acute osseous abnormality. XR/XR chest 1V portable [id number] IMPRESSION: 1. No acute cardiopulmonary abnormality.
--- NOTE | 2024-12-22 17:43 | W.ED.ARRPALP ---
HPI - Arrhythmia/Palpitations General: Chief Complaint: Arrhythmia/Palpitations Stated Complaint: chest pain Time Seen by Provider: 12/22/24 17:29 Source: patient Mode of arrival: ambulatory Limitations: no limitations History of Present Illness: Patient is a 29-year-old female with no pertinent past medical history who reports to the emergency department, referred by urgent care, due to chest pain beginning last night. Patient states she was lying in bed when the pain started, since then has noted that she has had palpitations and can feel her heart racing. She has never had episodes of this in the past. Does not report any shortness of breath. Denies any cardiac history. She states that she is on blood control, denies any history of DVT. States the pain will sometimes radiate to her left chest, also will radiate up towards right neck. She is not having any abdominal pain at this time. States that she is feeling dizzy, and states every time she eats something it comes right back up and she has been continually nauseous. No other symptoms or pertinent historical factors noted at this time. Currently heart rate noted to be in the 140s, blood pressure normal. MD complaint: palpitations Onset (ago): day(s) Duration: constant Context: occurred during rest Arrhythmia history: other (none) Associated symptoms: Reports nausea; Deny vomiting Related Data Home Medications ?Medication ?Instructions ?Recorded ?Confirmed venlafaxine 25 mg tablet 25 mg PO DAILY 08/10/21 12/22/24 Allergies Allergy/AdvReac Type Severity Reaction Status Date / Time No Known Allergies Allergy Verified 12/22/24 17:25 Review of Systems General: Reports: 10 or more systems reviewed and unremarkable except in HPI and below Const: Denies: fever(s), chills or fatigue Eyes: Denies: change in vision ENMT: Denies: throat pain, ear or mastoid pain or nasal discharge Card: Reports: chest pain, palpitations and lightheadedness; Denies: swelling of feet/ankles Resp: Denies: dyspnea, productive cough or wheezing GI: Reports: nausea; Denies: abdominal pain, vomiting, diarrhea or constipation : Denies: flank pain, difficulty voiding, dysuria or urinary frequency Musc: Denies: neck pain, back pain or joint pain Skin/Breast: Denies: rash Neuro: Reports: dizziness; Denies: headache(s), numbness in extremities or weakness in extremities PFSH ED PFSH: Medical History Immunization counseling High risk medication use Inflammatory arthritis Inflammation of left eye Viral URI with cough Compression neuropathy Surgical History Hx of appendectomy Hx of section Family History Mother No problems noted. Family/Other Cancer Grandmother Cancer Grandfather Heart attack Denies family history of Rheumatoid arthritis Diabetes Lupus Hyperlipidemia Hypertension Stroke Social History Smoking and tobacco/nicotine status: never used tobacco/nicotine Alcohol intake: former Substance/Drug Use: never Physical Exam Const: COMMON NORMALS: patient oriented x3 and no limitations GENERAL APPEARANCE: cooperative, well developed and anxious ORIENTATION/CONSCIOUSNESS: Yes awake, Yes oriented to person, Yes oriented to place and Yes oriented to time HENMT: COMMON NORMALS: normocephalic, atraumatic and hearing grossly normal bilaterally HEAD & SCALP: normocephalic and atraumatic Eye: COMMON NORMALS: Equal, round and reactive pupils present, EOMs intact bilaterally and conjunctivae normal CONJUNCTIVA: Yes conjunctivae normal PUPIL: Yes Equal, round and reactive pupils present Neck/C-Spine: COMMON NORMALS: full ROM, supple and no JVD Resp: COMMON NORMALS: normal respiratory effort, No retractions, No use of accessory muscles and clear to auscultation bilaterally AUSCULTATION: clear to auscultation bilaterally Cardio: COMMON NORMALS: no JVD, regular rhythm, No clicks present (Cardio), No murmurs present (Cardio) and No rub (Cardio) RATE: tachycardic RHYTHM: regular rhythm GI: COMMON NORMALS: Normal to inspection, nondistended, normoactive bowel sounds present, Soft to palpation and non-tender AUSCULTATION: Yes normoactive bowel sounds PALPATION: Yes Soft to palpation RECTAL EXAM: deferred Extremity: COMMON NORMALS: normal to inspection, full ROM and capillary refill normal Neuro: COMMON NORMALS: patient oriented x3, moves all extremities, no focal motor deficits and no sensory deficits noted SENSORIUM/ORIENTATION: Yes oriented to person, Yes oriented to place and Yes oriented to time Psych: COMMON NORMALS: mental status grossly normal and Normal thought process present THOUGHT PROCESS: Normal thought process present Skin: COMMON NORMALS: no rashes or lesions noted GENERAL SKIN EXAM: no rashes or lesions noted Course Vital Signs: Vital signs: Vital Signs Temperature 98.3 F 12/22/24 17:13 Pulse Rate 117 H 12/22/24 19:07 Respiratory Rate 16 12/22/24 19:07 Blood Pressure 150/92 12/22/24 19:07 Pulse Oximetry 98 12/22/24 19:07 Oxygen Delivery Me thod Room Air 12/22/24 19:07 MDM - Arrhythmia/Palpitations Medical Decision Making Patient presented for chest pain and shortness of breath, referred by urgent care. He was tachycardic, an EKG, which was reviewed with physician, there was sinus tachycardia evident, and she has been tachycardic throughout ED stay. On exam noted to be anxious, she also did not have any pertinent cardiac history. Does take control, no history of blood clots. Her CBC was unremarkable, electrolytes were normal, urine negative, chest x-ray normal. Troponin undetectable, however her D-dimer was noted to be elevated. CTA ordered that did not show PE, however there were concerns of mediastinal lymphadenopathy. 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 Heart rate has dropped somewhat being here in the emergency department, she was given fluids and attempt to ease her anxiety with Ativan was given through the IV. I believe she needs to see her regular doctor for further testing in the next day or so, potentially referral to pulmonology if this does seem to be sarcoid. Plan for discharge home at this time, discussed return precautions of which she verbalized understanding. Discussed case with Dr. Grullon. Lab Data 12/22/24 17:54 12/22/24 17:54 Radiology Impressions Chest X-Ray 12/22/24 17:34 IMPRESSION: 1. No acute cardiopulmonary abnormality. Chest CTA 12/22/24 18:40 IMPRESSION: 1. No evidence of PE or acute aortic abnormality. 2. Prominent and borderline mediastinal and hilar nodes, possibly reactive. Consider correlation with clinical and laboratory findings to exclude a lymphoproliferative process (including sarcoid). Laboratory Results WBC 8.29 10^3/uL (3.29-11.43) 12/22/24 17:54 RBC 4.73 10^6/uL (3.85-5.65) 12/22/24 17:54 Hgb 13.70 g/dL (11.27-16.99) 12/22/24 17:54 Hct 41.8 % (36-47) 12/22/24 17:54 MCV 88.4 fl (85-98) 12/22/24 17:54 MCH 29.0 pg (27-33) 12/22/24 17:54 MCHC 32.8 g/dL (30-55) 12/22/24 17:54 RDW 13.0 % (12.1-15.1) 12/22/24 17:54 Plt Count 189 10^3/cmm (157-399) 12/22/24 17:54 MPV 11.8 fL (7.4-10.4) H 12/22/24 17:54 Neut % (Auto) 72.9 % 12/22/24 17:54 Lymph % (Auto) 14.4 % 12/22/24 17:54 [place] % (Auto) 11.1 % 12/22/24 17:54 Eos % (Auto) 0.5 % 12/22/24 17:54 Baso % (Auto) 0.7 % 12/22/24 17:54 Neut # (Auto) 6.05 10^3/uL (1.8-7.7) 12/22/24 17:54 Lymph # (Auto) 1.2 10^3/uL (0.8-4.8) 12/22/24 17:54 [place] # (Auto) 0.9 10^3/uL (0.2-0.9) 12/22/24 17:54 Eos # (Auto) 0.0 10^3/uL (0.0-0.8) 12/22/24 17:54 Baso # (Auto) 0.1 10^3/uL (0.0-0.1) 12/22/24 17:54 Nucleated RBC % (auto) 0 % 12/22/24 17:54 Nucleated RBCs # 0.0 /100WBC 12/22/24 17:54 D-Dimer 2.41 ug/mLFEU (0-0.59) H 12/22/24 17:54 Sodium 135 mmol/L (136-145) L 12/22/24 17:54 Potassium 3.5 mmol/L (3.5-5.1) 12/22/24 17:54 Chloride 101 mmol/L (98-107) 12/22/24 17:54 Carbon Dioxide 20 mmol/L (22-29) L 12/22/24 17:54 Anion Gap 17.5 (5-19) 12/22/24 17:54 BUN 6 mg/dL (6-20) 12/22/24 17:54 Creatinine 0.6 mg/dL (0.5-0.9) 12/22/24 17:54 GFR Calculation 117.4 mL/min (90-130) 12/22/24 17:54 Glucose 90 mg/dL (65-115) 12/22/24 17:54 Calculated Osmolality 277 mOsm/kg (285-295) L 12/22/24 17:54 Calcium 8.6 mg/dL (8.5-10.5) 12/22/24 17:54 Magnesium 1.8 mg/dL (1.7-2.3) 12/22/24 17:54 Total Bilirubin 0.2 mg/dL (0.15-1.2) 12/22/24 17:54 AST 35 U/L (0-32) H 12/22/24 17:54 ALT 53 U/L (0-33) H 12/22/24 17:54 Alkaline Phosphatase 63 U/L (35-105) 12/22/24 17:54 Troponin T Baseline < 6 ng/L (0-10) 12/22/24 17:54 Total Protein 6.9 g/dL (6.6-8.7) 12/22/24 17:54 Albumin 4.1 g/dL (3.5-5.2) 12/22/24 17:54 Globulin 2.8 g/dL (1.3-4.6) 12/22/24 17:54 TSH 2.05 uIU/mL (0.27-4.20) 12/22/24 17:54 HCG, Qual Negative (Negative) 12/22/24 17:54 Urine Color Dark yellow (Yellow) A 12/22/24 18:37 Urine Appearance Clear (CLEAR) 12/22/24 18:37 Urine pH 5.5 (5-7) 12/22/24 18:37 Ur Specific [place] 1.026 (1.005-1.030) 12/22/24 18:37 Urine Protein 2+ (Negative) A 12/22/24 18:37 Urine Glucose (UA) Negative (Normal) 12/22/24 18:37 Urine Ketones Trace (Negative) 12/22/24 18:37 Urine Blood Negative (Negative) 12/22/24 18:37 Urine Nitrate Negative (Negative) 12/22/24 18:37 Urine Bilirubin Negative (Negative) 12/22/24 18:37 Urine Urobilinogen 1.0 mg/dL (Negative) 12/22/24 18:37 Ur Leukocyte Esterase Negative (Negative) 12/22/24 18:37 Urine RBC 0-2 /hpf (0-2) 12/22/24 18:37 Urine WBC 6-10 /hpf (0-5) 12/22/24 18:37 Ur Squamous Epith Cells 11-20 /hpf (0-5) H 12/22/24 18:37 Amorphous Sediment Not Reportable 12/22/24 18:37 Urine Bacteria 1+ /hpf (NONE) H 12/22/24 18:37 Hyaline Casts 2.87 /lpf 12/22/24 18:37 All radiology interpretation(s) finalized by discharge EKG Data EKG 1: I personally reviewed and interpreted this EKG as follows: Prior EKG tracings: not available for review Interpretation: Reviewed with physician. Rate 146. Sinus tachycardia with frequent ectopic premature complexes. No STEMI. Other EKG comments: Chest X-Ray 12/22/24 17:34 IMPRESSION: 1. No acute cardiopulmonary abnormality. Chest CTA 12/22/24 18:40 IMPRESSION: 1. No evidence of PE or acute aortic abnormality. 2. Prominent and borderline mediastinal and hilar nodes, possibly reactive. Consider correlation with clinical and laboratory findings to exclude a lymphoproliferative process (including sarcoid). Discharge Plan Discharge Patient Disposition: Home Clinical Impression: Tachycardia, Chest pain Condition: Stable Prescriptions: No Action venlafaxine 25 mg tablet 25 mg PO DAILY Discharge Orders: Discharge ED (Routine); Ordered 12/22/24 Ordered By: Lico Acevedo Referrals: Yuri Hilliard MD [Primary Care Provider] - Patient Instructions: Tachycardia (ED) Activity Restrictions/Additional Instructions: Please follow-up with your regular doctor tomorrow as we discussed, to discuss your ED visit and further outpatient evaluation. Please return with any new or concerning symptoms. Print Language: Bengali Coding Level of Care Code ED [employer] Professional for Thania Martinez
[2024-12-22 17:55] VITALS: BP 133/81; PULSE 125; O2SAT 96
[2024-12-22] MEDS: sodium chloride 0.9% 1,000 ML 999 ML IV (17:55)
[2024-12-22 18:03] LABS: Basophils # 0.1 10^3/uL (0.0-0.1); Basophils % 0.7 %; Eosinophils % 0.5 %; Hematocrit 41.8 % (36-47); Lymphocytes # 1.2 10^3/uL (0.8-4.8); Lymphocytes % 14.4 %; Mean Corpuscular HGB Conc 32.8 g/dL (30-55); Mean Corpuscular Volume 88.4 fl (85-98); Mean Platelet Volume 11.8 fL (7.4-10.4); Monocytes # 0.9 10^3/uL (0.2-0.9); Monocytes % 11.1 %; Neutrophils # 6.05 10^3/uL (1.8-7.7); Neutrophils % 72.9 %; Nucleated Red Blood Cells % 0 %; Platelet Count 189 10^3/cmm (157-399); Red Blood Count 4.73 10^6/uL (3.85-5.65); White Blood Count 8.29 10^3/uL (3.29-11.43)
[2024-12-22 18:15] LABS: HCG, Serum Qual Negative (Negative)
[2024-12-22 18:24] LABS: Troponin(5th) Baseline < 6 ng/L (0-10)
[2024-12-22 18:25] VITALS: BP 129/87; PULSE 114; O2SAT 95
[2024-12-22 18:34] LABS: Alanine Aminotransferase 53 U/L (0-33); Albumin Level 4.1 g/dL (3.5-5.2); Alkaline Phosphatase 63 U/L (35-105); Anion Gap 17.5 (5-19); Aspartate Amino Transferase 35 U/L (0-32); Blood Urea Nitrogen 6 mg/dL (6-20); Calcium 8.6 mg/dL (8.5-10.5); Carbon Dioxide 20 mmol/L (22-29); Chloride 101 mmol/L (98-107); Creatinine Clr Calc Pharmacy 161.9013; D Dimer 2.41 ug/mLFEU (0-0.59); Globulin 2.8 g/dL (1.3-4.6); Glomerular Filtration Rate 117.4 mL/min (90-130); Glucose 90 mg/dL (65-115); Magnesium 1.8 mg/dL (1.7-2.3); Osmolality Calculated 277 mOsm/kg (285-295); Potassium 3.5 mmol/L (3.5-5.1); Sodium 135 mmol/L (136-145); Thyroid Stimulating Hormone 2.05 uIU/mL (0.27-4.20); Total Bilirubin 0.2 mg/dL (0.15-1.2); Total Protein 6.9 g/dL (6.6-8.7)
--- NOTE | 2024-12-22 18:40 | CTR_ITS ---
PROCEDURE INFORMATION: Exam: CTA Chest With Contrast Exam date and time: 12/22/2024 6:49 PM Age: 29 years old Clinical indication: Pain and abnormal findings; Abnormal diagnostic tests; Elevated d-dimer; Shortness of breath; Chest pressure; Chest pain and SOB with dimer 2.41. ; Additional info: Cp, SOB, elevated d-dimer TECHNIQUE: Imaging protocol: Computed tomographic angiography of the chest with contrast. Exam focused on the arteries. 3D rendering (Not supervised by radiologist): MIP and/or 3D reconstructed images were created by the technologist. Radiation optimization: All CT scans at this facility use at least one of these dose optimization techniques: automated exposure control; mA and/or kV adjustment per patient size (includes targeted exams where dose is matched to clinical indication); or iterative reconstruction. Contrast material: OMNI 350; Contrast volume: 55 ml; Contrast route: INTRAVENOUS (IV); COMPARISON: CR (CHEST, ) 12/22/2024 5:50 PM RADIATION DOSE METRICS: Total DLP (mGy-cm): 449.69 FINDINGS: Pulmonary arteries: No evidence of pulmonary thromboembolism. Aorta: No evidence of aneurysmal dilatation or dissection of the thoracic aorta. Thyroid: Grossly unremarkable. Lungs: No focal consolidation. No evidence of pneumonia. Pleural spaces: No evidence of pleural effusion. No pneumothorax. Heart: No cardiomegaly. No pericardial effusion. Mediastinal space: No evidence of mediastinal mass, fluid collection or hematoma. Lymph nodes: Multiple prominent and borderline enlarged mediastinal and hilar nodes. Bones/joints: No evidence of acute fracture or aggressive osseous lesion. Soft tissues: No evidence of fluid collection or hematoma in the superficial soft tissues. Other findings: No evidence of acute abnormality in the upper abdomen. CT/CT angio chest PE protcl [id number] IMPRESSION: 1. No evidence of PE or acute aortic abnormality. 2. Prominent and borderline mediastinal and hilar nodes, possibly reactive. Consider correlation with clinical and laboratory findings to exclude a lymphoproliferative process (including sarcoid).
[2024-12-22 18:41] LABS: Bilirubin Urine Negative (Negative); Blood Urine Negative (Negative); Glucose Urine UA Negative (Normal); Ketones Urine Trace (Negative); Leukocyte Esterase Urine Negative (Negative); Nitrate Urine Negative (Negative); Protein Urine 2+ (Negative); Specific Gravity, Urine 1.026 (1.005-1.030); Urine Appearance Clear (CLEAR); Urine Color Dark Yellow (Yellow); pH Urine 5.5 (5-7)
[2024-12-22 18:46] LABS: Add Urine Microscopic? YES; Bacteria Urine 1+ /hpf; Hyaline Casts Urine 2.87 /lpf; RBC Urine 0-2 /hpf (0-2)
[2024-12-22] MEDS: iohexol 350 mg/mL 500 mL Btl (per mL) IV (18:52)
[2024-12-22 19:07] VITALS: BP 150/92; PULSE 117; RESP 16; O2SAT 98
--- NOTE | 2024-12-22 19:43 | ECG_ITS ---
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 Measurements Intervals [place] Rate: 108 P: 48 FL: 120 QRS: 73 QRSD: 97 T: -12 QT: 304 QTc: 409 Interpretive Statements SINUS TACHYCARDIA LOW QRS VOLTAGE IN PRECORDIAL LEADS [QRS DEFLECTION < 1.0 mV IN CHEST LEADS] NONSPECIFIC T-WAVE ABNORMALITY Compared to ECG 12/22/2024 17:20:19 Low QRS voltage now present T-wave abnormality still present Electronically Signed On 12-25-2024 20:01:35 CDT by Yohan Brush M.D. [email or web address]
[2024-12-22] MEDS: LORazepam 2 mg/mL INJ 1 mL 1 MG IVP (19:56)
[2024-12-22 20:18] LABS: Troponin 5 2HR Delta 0.00001 ABS# (0-10)
[2024-12-22 20:21] VITALS: BP 125/86; PULSE 130; RESP 16; O2SAT 97
[2024-12-22 21:03] VITALS: BP 137/87; PULSE 115; RESP 16; O2SAT 97
== END 2024-12-22 21:04 | disposition home or self-care (01) ==
PROVIDERS: Emergency Provider Physician Assistant; PCP Family Medicine
DX: R00.0 Tachycardia, unspecified (principal); R07.9 Chest pain, unspecified
CPT/HCPCS: 36415; 71045; 71275; 80053; 81001; 83735; 84443; 84484; 84703; 85025; 85378; 93005; 96361; 96374; 99285; J2060; J7030

== ENCOUNTER 2024-12-25 08:02 | Outpatient (CLI) | payer MEDICAID, SELFPAY ==
[2024-12-25 08:51] LABS: Basophils # 0.1 10^3/uL (0.0-0.1); Basophils % 1.3 %; Eosinophils # 0.1 10^3/uL (0.0-0.8); Eosinophils % 2.5 %; Hematocrit 41.4 % (36-47); Lymphocytes # 1.9 10^3/uL (0.8-4.8); Lymphocytes % 36.1 %; Mean Corpuscular HGB Conc 32.4 g/dL (30-55); Mean Corpuscular Volume 89.6 fl (85-98); Mean Platelet Volume 12.2 fL (7.4-10.4); Monocytes # 0.6 10^3/uL (0.2-0.9); Monocytes % 11.3 %; Neutrophils # 2.52 10^3/uL (1.8-7.7); Neutrophils % 48.4 %; Nucleated Red Blood Cells % 0 %; Platelet Count 180 10^3/cmm (157-399); Red Blood Count 4.62 10^6/uL (3.85-5.65); Red Cell Distribution Width 13.2 % (12.1-15.1); White Blood Count 5.21 10^3/uL (3.29-11.43)
[2024-12-25 08:52] LABS: Erythrocyte Sedimentation Rate 32 mm/hr (0-15)
[2024-12-25 09:06] LABS: Alanine Aminotransferase 66 U/L (0-33); Albumin Level 3.9 g/dL (3.5-5.2); Alkaline Phosphatase 61 U/L (35-105); Aspartate Amino Transferase 50 U/L (0-32); C Reactive Protein 86.5 mg/L (0.0-4.9); Globulin 3.3 g/dL (1.3-4.6); Glomerular Filtration Rate 117.4 mL/min (90-130); Total Bilirubin 0.2 mg/dL (0.15-1.2); Total Protein 7.2 g/dL (6.6-8.7)
== END 2024-12-25 08:03 | disposition home or self-care (01) ==
LOC: LAB 08:03
PROVIDERS: PCP Family Medicine; Visit Provider Internal Medicine Rheumatology
DX: M19.90 Unspecified osteoarthritis, unspecified site (principal); Z79.899 Other long term (current) drug therapy; R76.8 Other specified abnormal immunological findings in serum
CPT/HCPCS: 36415; 80076; 82565; 83520; 85025; 85651; 86140; 86200

== ENCOUNTER 2025-01-15 07:24 | Outpatient (CLI) | payer MEDICAID, SELFPAY ==
--- NOTE | 2025-01-15 08:00 | US_ITS ---
WS: [id number] RIGHT UPPER QUADRANT ULTRASOUND HISTORY: R74.8 - Abnormal levels of other serum enzymes COMPARISON: 07/23/2009, CT 12/22/2024 Liver: 18.0 cm in length. Enlarged dense liver. Coarse echotexture. Poor visualization of the deep liver towards the diaphragm. No mass. Portal Vein: Normal hepatopetal flow with monophasic waveform. Gallbladder: Normally distended gallbladder with no stones or wall thickening. CBD: 0.5 cm Pancreas: Poorly visualized. Right kidney: 10.5 cm in length. Normal size and echogenicity. No hydronephrosis or mass. Aorta and IVC: Limited. No ascites. US/US liver [id number] IMPRESSION: 1. Limited RIGHT upper quadrant ultrasound due to body habitus. 2. The liver is enlarged and very dense from hepatic steatosis. The entire barry er is not well visualized. 3. Negative gallbladder.
== END 2025-01-15 07:25 | disposition home or self-care (01) ==
PROVIDERS: PCP Family Medicine; Visit Provider Internal Medicine Rheumatology
DX: R74.8 Abnormal levels of other serum enzymes (principal); R16.0 Hepatomegaly, not elsewhere classified; K76.0 Fatty (change of) liver, not elsewhere classified
CPT/HCPCS: 76705

== ENCOUNTER → 2025-05-06 14:00 | Outpatient (BNVA) | payer MEDICAID, SELFPAY | PROVIDERS: PCP Family Medicine; Visit Provider Internal Medicine Rheumatology | DX: Z79.899 Other long term (current) drug therapy (principal) | CPT/HCPCS: 36415; 80076; 82306; 82565; 82657; 85025; 85651; 86140 ==

== ENCOUNTER → 2025-05-12 15:57 | Outpatient (BNVA) | payer MEDICAID, SELFPAY | PROVIDERS: PCP Family Medicine | DX: J02.9 Acute pharyngitis, unspecified (principal) | CPT/HCPCS: 87070; 87071; 87880 ==